=== PATIENT | male | born 1990 | race Caucasian/White ===

== ENCOUNTER → 2023-05-24 12:30 | Outpatient (CLI) | payer BC, SELFPAY ==
--- NOTE | 2023-05-24 12:38 | XR_ITS ---
FINAL REPORT CLINICAL HISTORY: Foot pain COMPARISON: None FINDINGS: LEFT FOOT Three views of the left foot demonstrate no acute fracture or dislocation. The visualized joint spaces are normally aligned. The soft tissues are unremarkable. Note is made of an accessory navicular. IMPRESSION: No acute bony abnormality. Reviewed, Interpreted and Dictated by Kota Lambert MD Transcribed by Corine Delgadillo Authenticated and [facility]
--- NOTE | 2023-05-24 12:38 | XR_ITS ---
FINAL REPORT CLINICAL HISTORY: Foot pain COMPARISON: None FINDINGS: RIGHT FOOT 3 views of the right foot were obtained. There is no acute fracture or dislocation. Visualized joint spaces are normally aligned. Soft tissues are unremarkable. A small os perineum is incidentally noted. IMPRESSION: No acute bony abnormality. Reviewed, Interpreted and Dictated by Kota Lambert MD Transcribed by Corine Delgadillo Authenticated and [facility]
== END ==
LOC: RAD 12:35
PROVIDERS: PCP Family Medicine; Visit Provider Podiatrist
DX: M79.671 Pain in right foot (principal); M79.672 Pain in left foot
CPT/HCPCS: 73630

== ENCOUNTER 2024-03-27 11:36 | Day surgery (SDC) | payer BC, SELFPAY ==
[2024-03-25 15:32] VITALS: BMI 31.4
[2024-03-27 12:01] VITALS: BP 136/86; PULSE 83; RESP 16; TEMP 36.7; O2SAT 97
[2024-03-27] MEDS: LACTATED RINGERS 1000ML 1,000 ML 25 ML IV (12:17)
[2024-03-27 12:33] LABS: POC Glucose,Bedside 369 (70-110)
--- NOTE | 2024-03-27 12:49 | EXP.ANES.CKL ---
[facility] Disclaimer: The information contained in this section may have been updated after the patient was seen, as this information can be updated by other users. Medical History Diabetes mellitus type 1 Surgical History History of esophagogastroduodenoscopy (EGD) Family History Other No significant family history Social History (Updated 03/27/24 @ 12:16 by Marisol Fairbanks RN) Smoking Status: Current every day smoker tobacco type: e-cigarettes alcohol intake: current substance use type: denies use current occupational status: employed Travel in the last 8 weeks: None caffeine: Yes [facility] Anesthesia Checklist Patient Identification Patient Identification: Arm Band Structural Data Admitted From: Home Planned Operative Procedure/s: EGD Consent for Planned Operative Procedure(s) Verified: Yes Verified Documents: Surgical Consent and History and Physical NPO Status Verified Time NPO: 05:00 ([employer]uts at 0500. Energy Drink + Sprite at 0945. ) Additional verifications Anesthesia Reactions: No Airway Assessment Mallampati Score:: Class II C-Spine Mobility Assessed: Yes TMJ Mobility Assessed: Yes Dentition: Good Dentition Neurological Assessment Level of Consciousness: Awake, Alert and Appropriate Anesthesia Plan Anesthesia Risk discussed: Yes Anesthesia Plan: Verified ASA Class: III Anesthesia Type: MAC
--- NOTE | 2024-03-27 13:06 | EXP.HP ---
History of Present Illness *Admission Date: 03/27/24 *Reason for visit:: Dyspepsia *History of present illness: Mr. Grant is a 33-year-old gentleman who is here for left upper quadrant abdominal pain, bloating, reflux and dysphagia. He has nausea and early satiety.. The examination is deemed medically necessary for EGD. The patient has been seen, interviewed and examined prior to the procedure by both myself and the anesthesia provider. [facility] Disclaimer: The information contained in this section may have been updated after the patient was seen, as this information can be updated by other users. Medical History Diabetes mellitus type 1 Surgical History History of esophagogastroduodenoscopy (EGD) Family History Other No significant family history Social History (Updated 03/27/24 @ 12:16 by Marisol Fairbanks RN) Smoking Status: Current every day smoker tobacco type: e-cigarettes alcohol intake: current substance use type: denies use current occupational status: employed Travel in the last 8 weeks: None caffeine: Yes Review of Systems Review of Systems Review of systems (narrative): Negative *Cardiovascular Comments: Negative *Gastrointestinal Comments: Negative *Genitourinary Comments: Negative *Musculoskeletal Comments: Negative *Neurologic Comments: Negative Meds Home Medications and Allergies Home Medications ?Medication ?Instructions ?Recorded ?Confirmed ?Type insulin lispro 100 unit/mL 4 sliding scale dose SQ 05/24/23 03/27/24 History subcutaneous cartridge (Humalog USEASDIRECTD U-100 Insulin) trazodone 100 mg tablet 100 mg PO DAILY 05/24/23 03/27/24 History semaglutide 0.25 mg or 0.5 mg (2 0.25 mg SQ DAILY 03/03/24 03/27/24 History mg/3 mL) subcutaneous pen injector (Ozempic) New Prescriptions to Start Prescriptions: Allergies Allergy/AdvReac Type Severity Reaction Status Date / Time watermelon Allergy Unknown Verified 03/27/24 11:59 allergy reaction Exam Data for Last 24 hours Vital signs and Labs for Last 24 Hours: Temp Pulse Resp BP Pulse Ox O2 Del Method 98.1 F 83 16 136/86 97 Room Air 03/27/24 12:01 03/27/24 12:01 03/27/24 12:01 03/27/24 12:01 03/27/24 12:01 03/27/24 12:01 Laboratory Results - last 24 hr 03/27/24 12:12: POC Glucose 369 H* I & O for Last 24 hours: Intake & Output 03/24/24 03/25/24 03/26/24 03/27/24 23:59 23:59 23:59 23:59 Weight 245 lb *Routine HEENT Exam Head: Present normocephalic Eye: Present EOMI and PERRL ENT: Present mucous membranes moist *Routine Neck Exam Neck: Present supple *Routine Respiratory Exam Respiratory: Present CTA bilaterally *Routine Cardiovascular Exam Cardiovascular: Present RRR *Routine Abdominal Exam Abdominal: Present soft and normoactive bowel sounds; Absent tenderness *Routine Rectal Exam Rectal:: deferred *Routine Genitalia Exam Genitalia:: deferred *Routine Extremities Exam Extremities: Absent cyanosis, clubbing or edema *Routine Skin Exam Skin: Present warm; Absent rash *Routine Neurological Exam Neurological: Present alert and oriented X3 Assessment and Plan *Assessment and plan (1) LUQ pain: Status: Acute Category: Medical Code(s): R10.12 - Left upper quadrant pain (2) Bloating: Status: Acute Category: Medical Code(s): R14.0 - Abdominal distension (gaseous) (3) Dysphagia: Status: Acute Category: Medical Code(s): R13.10 - Dysphagia, unspecified (4) Globus sensation: Status: Acute Category: Medical Code(s): R09.A2 - Foreign body sensation, throat (5) Incomplete defecation: Status: Acute Category: Medical Code(s): R15.0 - Incomplete defecation Plan A/P: 1. Left upper quadrant abdominal pain/bloating and dysphagia is the preprocedural diagnosis. The patient will be anesthetized/sedated using MAC sedation. The patient has been seen and examined. Cardiac and lung assessment prior to the examination is stable. Proceed with planned upper endoscopy
[2024-03-27 13:10] VITALS: O2SAT 97
--- NOTE | 2024-03-27 13:20 | P.PCN_ITS ---
[facility] Procedure Note Date: 03/27/24 Time: 13:35 Procedure Note:: Upper Endoscopy Procedure Report: Esophagogastroduodenoscopy with cold biopsies and TTS balloon dilation Endoscopost: Sarwat Higginbotham II, MD Referring Physician: David Feldman MD Date of Procedure: March 27, 2024 Equipment: Olympus GIF 190 standard upper endoscope Sedation: MAC sedation Indications: Mr. Gillis is a 33-year-old gentleman with left upper quadrant abdominal pain and bloating. He reports persistent nausea and early satiety. He does get some reflux and takes Pepcid and Tums therapy intermittently. He does get some belching, dysphagia and globus sensation. He reports incomplete defecation with smaller stools, longer periods of time on the commode and excessive wiping. He had an EGD [address] Moshe Díaz in [place]. He underwent a gastric emptying study that was normal at [facility]. Procedure: Prior to the procedure, a history and physical exam was performed, and patient's medications and allergies were reviewed. The risks, benefits and alternatives of the sedation and procedure were discussed with the patient. All questions were answered and informed consent was obtained. The patient was brought to the procedure room. Patient identification and proposed procedure were verified by the physician and the nurse. The patient was placed in a left lateral decubitus position and the scope was passed under direct vision. Throughout the procedure, the patient's blood pressure, pulse, and oxygen saturations were monitored continuously. The upper GI endoscopy was accomplished without difficulty. The patient tolerated the procedure well. Findings: The scope was passed directly into the upper esophagus and advanced to the third portion of the duodenum. The post bulbar duodenum and duodenal bulb were normal with normal mucosa and conniventes. The scope was withdrawn through a normal duodenal bulb and pylorus into the stomach. There was some mild reactive gastropathy of the antrum. There was very mild gastritis of the body and fundus with mild reticular pattern and erythema. Upon retroflexion there was a small 1 to 2 cm hiatal hernia. Cold biopsies were taken along the lesser curvature and incisura. Biopsies were taken to rule out H. pylori. The scope was then withdrawn into the esophagus. There was a distal esophageal ring and there was some corrugation and ringlike pattern with esophageal mucosal exudate and minor furrowing. Cold biopsies were taken from the distal and to rule out eosinophilic esophagitis. The esophagus was then gently dilated to 18 mm with a TTS hydrostatic balloon. There was no evidence of reflux esophagitis or Sena's. Impression: 1. Esophageal corrugation/ringlike pattern with some esophageal stenosis/exudate and curling?rule out eosinophilic esophagitis 2. Very small 1 to 2 cm hiatal hernia 3. Mild chronic gastritis and mild reactive gastropathy Plan: I will follow-up the biopsies. We will discuss additional treatment options today. I would recommend dietary measures and fiber bowel regimen. I will place him on PPI therapy and Iberogast. He may benefit from buspirone for his functional dyspepsia.
[2024-03-27 13:39] VITALS: BP 123/74; PULSE 111; RESP 16; O2SAT 91
[2024-03-27 13:49] VITALS: BP 127/82; PULSE 102; RESP 18; O2SAT 96
[2024-03-27 13:59] VITALS: BP 132/74; PULSE 96; RESP 16; O2SAT 95
[2024-03-27 14:09] VITALS: BP 135/88; PULSE 92; RESP 16; O2SAT 96
== END 2024-03-27 14:17 | disposition home or self-care (01) ==
PROVIDERS: PCP Family Medicine; Visit Provider Internal Medicine Gastroenterology
PROC: 0DJ08ZZ Inspection of Upper Intestinal Tract, Via Natural or Artificial Opening Endoscopic (ICD-10-PCS; CPT 43235; principal; 2024-03-27 13:00)
DX: R10.12 Left upper quadrant pain (principal); R14.0 Abdominal distension (gaseous); R13.10 Dysphagia, unspecified; R09.A2 Foreign body sensation, throat; R15.0 Incomplete defecation; K20.0 Eosinophilic esophagitis; K21.9 Gastro-esophageal reflux disease without esophagitis; R11.0 Nausea; R68.81 Early satiety; K44.9 Diaphragmatic hernia without obstruction or gangrene
CPT/HCPCS: 43239; 43249; 82962; C1726; J2704; J7120

== ENCOUNTER 2024-04-27 20:57 | Emergency (ER) | payer BC, SELFPAY ==
[2024-04-27 20:59] VITALS: BP 135/91; PULSE 125; RESP 18; TEMP 37.3; O2SAT 97; BMI 32.1
[2024-04-27 22:26] LABS: Coronavirus 19, PCR Not Detected (NotDetected); Influenza A, PCR Not Detected (NotDetected); Influenza B, PCR Not Detected (NotDetected)
--- NOTE | 2024-04-27 23:01 | ED_ITS ---
Discharge Plan Disposition Patient Disposition: Left Against Medical Advice Prescriptions Prescriptions: New ondansetron HCl 4 mg tablet 4 mg PO Q8H PRN (Reason: nausea and vomiting) 5 Days Qty: 30 0RF levofloxacin 750 mg tablet 750 mg PO DAILY 5 Days Qty: 5 0RF vancomycin 250 mg capsule 500 mg PO Q6H 10 Days Qty: 80 0RF No Action prednisone 20 mg tablet 20 mg PO DAILY 7 Days Qty: 7 0RF Humalog U-100 Insulin 100 unit/mL cartridge 4 sliding scale dose SQ USEASDIRECTD Patient Comments: Takes 300 units every 3 days trazodone 100 mg tablet 100 mg PO DAILY omeprazole 40 mg capsule,delayed release(DR/EC) 40 mg PO ONCE Qty: 30 12RF Rx Instructions: Please take 1 capsule p.o. daily 30 minutes prior to supper Referrals Follow up/Referrals: David Feldman [Primary Care Provider] - See instructions Activity Restrictions/Add. Instructions Additional Instructions/Restrictions: Take antibiotics as prescribed. Please take Zofran as needed for nausea and vomiting. Please try to remain hydrated. please follow-up with your primary care provider. Please return to the emergency department if you develop any new or worsening symptoms or become concerned for your health. Clinical Impressions Clinical Impression: Dehydration, Tachycardia, C. difficile colitis Instructions Patient Instructions: DI for Diarrhea and Traveler's Diarrhea -- Adult, DI for Diarrhea and Traveler's Diarrhea -- Child, DI for Nausea -- Adult, DI for Nausea -- Child Print Language Print Language: Guamanian Discharge ED Provider: Luis Carlos Lew General Adult HPI General Chief complaint: Nausea/Vomiting/Diarrhea Stated complaint: vomiting,fever,abdominal pain ,headache , body ach Time Seen by Provider: 04/27/24 23:00 Mode of Arrival: Ambulatory Source of Information: Patient Limitations: No Limitations Description of Symptoms (Recalled from ER Triage Doc. by RN): Patient to ED with complaints of fever x24 hrs, n/v/d, headache. Patient states that he also has body aches, and generalized weakness. History of Present Illness HPI narrative: 33-year-old male with history of type 1 diabetes, eosinophilic esophagitis presents for multiple complaints. He reports that over the last few days he has had significant frequent nonbloody nausea vomiting and diarrhea. He reports that he feels like he is unable to keep up with fluid requirements. He reports that he has generalized bodyaches. He reports that he has a chronic headache that he has not been evaluated for before. It happens almost every day. Is usually frontal in nature. He reports he has a headache now that is more diffuse in nature. It did not improve with Tylenol at home. He reports he does have some neck and back soreness as well, but reports he is able to look around without pain. He denies any vision changes associated with this headache. Denies any focal neurologic deficits, but family says that he has been somewhat out of it since he has been sick. He reports fever up to 102 at home. he also reports some cough. He reports he was on amoxicillin for presumed sinus infection recently. Related Data Home Medications ?Medication ?Instructions ?Recorded ?Confirmed insulin lispro 100 unit/mL 4 sliding scale dose SQ 05/24/23 04/03/24 subcutaneous cartridge (Humalog USEASDIRECTD U-100 Insulin) trazodone 100 mg tablet 100 mg PO DAILY 05/24/23 04/03/24 Previous Rx's ?Medication ?Instructions ?Recorded omeprazole 40 mg capsule,delayed 40 mg PO ONCE #30 caps 03/27/24 release prednisone 20 mg tablet 20 mg PO DAILY 7 days #7 tabs 04/03/24 levofloxacin 750 mg tablet 750 mg PO DAILY 5 days #5 tabs 04/28/24 ondansetron HCl 4 mg tablet 4 mg PO Q8H PRN nausea and 04/28/24 vomiting 5 days #30 tabs vancomycin 250 mg capsule 500 mg (2 x 250 mg) PO Q6H 10 days 04/28/24 #80 caps Allergies Allergy/AdvReac Type Severity Reaction Status Date / Time watermelon Allergy Unknown Verified 04/03/24 15:16 allergy reaction [facility] Disclaimer: The information contained in this section may have been updated after the patient was seen, as this information can be updated by other users. Medical History Diabetes mellitus type 1 Surgical History History of esophagogastroduodenoscopy (EGD) Family History Other No significant family history Social History Smoking Status: Current every day smoker tobacco type: e-cigarettes alcohol intake: current substance use type: denies use current occupational status: employed caffeine: Yes ROS Obtained: Yes All systems reviewed & no additional complaints except as documented Physical Exam General General appearance: alert and in no apparent distress Head Head exam: atraumatic and normocephalic Eye Eye exam: Present normal appearance, PERRL and EOMI; Absent scleral icterus or conjunctival redness ENT ENT exam: Present normal oropharynx and normal external ear exam Neck Neck exam: Present normal inspection, full ROM (Without pain) and tenderness (Mild paraspinal tenderness); Absent meningismus Chest Chest inspection: Present normal inspection and symmetric chest wall rise; Absent tenderness Respiratory Respiratory exam: Present normal lung sounds bilaterally; Absent respiratory distress Cardiovascular Cardiovascular exam: Present normal rhythm and tachycardia Abdominal Exam Abdominal exam: Present soft and tenderness (Mildly diffusely tender, worse in epigastric); Absent distention or guarding Extremities Exam Extremities exam: Present normal inspection; Absent edema or joint swelling Back Exam Back exam: Present normal inspection; Absent tenderness Neurological Exam Neurological exam: Present alert, oriented X3 and CN II-XII intact; Absent motor sensory deficit Psychiatric Psychiatric exam: Present normal affect and normal mood Skin Skin exam: Present warm, dry and normal color Lymphatic Lymphatic Findings: no adenopathy Medical Decision Making Medical Records Medical records reviewed: Yes I reviewed the patient's medical records. Screening: Per USPSTF and CDC recommendations, given the prevalence of disease in our region, it is our hospital?s policy to screen for HIV and viral Hepatitis for all patients aged 18 and over and those with ongoing risk factors. Abdiel Inquiry Pt receiving controlled substance: No Abdiel was queried for this patient: No Vital Signs: 04/27/24 20:59 04/28/24 02:49 Temperature 99.2 F 98.2 F Temperature Source Oral Pulse Rate 125 H Pulse Rate [Left] 125 H Respiratory Rate 18 23 Blood Pressure 145/69 H Blood Pressure [Right Arm] 135/91 H Blood Pressure Mean [Right Arm] 105 Blood Pressure Source [Right Arm] Automatic Cuff Blood Pressure Position [Right Arm] Sitting 02 Sat by Pulse Oximetry 97 Oxygen Delivery Method Room Air Room Air Lab Data Lab results reviewed: Yes I reviewed the patient's lab results. Lab Results 04/27/24 00:00: Chlamy pneumoniae PCR Not detected, Adenovirus (PCR) Not detected, B. pertussis DNA (PCR) Not detected, Coronavirus OC43 (PCR) Not detected, Coronavirus HKU1 (PCR) Not detected, Coronavirus 229E (PCR) Not detected, SARS-CoV-2 (PCR) Not detected, Coronavirus NL63 (PCR) Not detected, Human Metapneumovir PCR Not detected, Influenza A (H1) PCR Not detected, Influ A (H1N1/09) PCR Not detected, Influenza A (H3) PCR Not detected, Influenza Type A (PCR) Not detected, Influenza Type B (PCR) Not detected, M. pneumoniae (PCR) Not detected, Parainfluenza 1 (PCR) Not detected, Parainfluenza 2 (PCR) Not detected, Parainfluenza 3 (PCR) Not detected, Parainfluenza 4 (PCR) Not detected, RSV (PCR) Not detected, Entero/Rhino (PCR) Not detected 04/27/24 22:18: SARS-CoV-2 (PCR) Not detected, Influenza A Untype (PCR) Not detected, Influenza Type B (PCR) Not detected 04/27/24 22:25: WBC 16.2 H, RBC 5.37, Hgb 16.0, Hct 45.8, MCV 85.2, MCH 29.7, MCHC 34.9, RDW 13.6, Plt Count 292, MPV 7.5, Neut % (Auto) 93.7 H, Lymph % (Auto) 3.1 L, [place] % (Auto) 2.8, Eos % (Auto) 0.1, Baso % (Auto) 0.4, Neut # (Auto) 15.2 H, Lymph # (Auto) 0.5 L, [place] # (Auto) 0.5, Eos # (Auto) 0.0, Baso # (Auto) 0.1, Total Counted 100, Neutrophils % (Manual) 84 H, Band Neutrophils % 9.0 H, Lymphocytes % (Manual) 4 L, Monocytes % (Manual) 3, Platelet Estimate Normal, RBC Morphology Normal, Sodium 133 L, Potassium 3.7, Chloride 99, Carbon Dioxide 25, Anion Gap 12.7, BUN 16, Creatinine 1.20, Estimated Creat Clear 142, Estimated GFR 70, Est GFR ( Amer) 85, Glucose 268 H, Calcium 8.5, M agnesium 1.4 L, Total Bilirubin 0.8, AST 33, ALT 43, Alkaline Phosphatase 89, Total Protein 6.9, Albumin 4.1, Globulin 2.8, Albumin/Globulin Ratio 1.5, Lipase 24, TSH 0.89, Thyroxine (T4) 7.6 04/28/24 00:30: VBG pH 7.46 H, VBG pCO2 28.2 L, VBG pO2 115.8 H, VBG HCO3 19.5 L , VBG Total CO2 20.4 L, VBG O2 Saturation 98.9 H, VBG Base Excess -4.3 L, VBG Lactic Acid 1.9, Urine Color Yellow, Urine Appearance Clear, Urine pH 5.5, Ur Specific [place] 1.020, Urine Protein Negative, Urine Glucose (UA) 2+, Urine Ketones Negative, Urine Blood Negative, Urine Nitrate Negative, Urine Bilirubin Negative, Urine Urobilinogen 0.2, Ur Leukocyte Esterase Negative, Urine RBC None, Urine WBC None, Ur Squamous Epith Cells Occasional, Urine Bacteria None 04/28/24 01:34: Stl Aeromonas (PCR) Not detected, Stl C. cayetanensis PCR Not detected, Stool Rotavirus (PCR) Not detected, Stl Adenov F 40/41 PCR Not detected, Stool Astrovirus (PCR) Not detected, Stool Campylobacter PCR Not detected, Stl C.difficile Tox PCR Detected A, Stool Cryptosporidium PCR Not detected, Stl E.coli Shiga Tox PCR Not detected, Stool E coli O157 PCR Not detected, Stl Enterotoxigenic E PCR Not detected, Stool EPEC (PCR) Not detected, Stool EAEC (PCR) Not detected, Stl E. histolytica PCR Not detected, Stool Giardia Lamblia PCR Not detected, Stool Salmonella PCR Not detected, Stool Sapovirus (PCR) Not detected, Stl P. shigelloides PCR Not detected, Stl Shigella/EIEC PCR Not detected, St Y.enterocolitica PCR Not detected, Stool Vibrio (PCR) Not detected, Stl Vibrio cholerae PCR Not detected, Stl Norovirus GI/GII PCR Not detected 04/27/24 22:25 04/27/24 22:25 Orders (Tests/Meds): ED MEDICATIONS Discontinued Medications Generic Name Dose Route Start Last Admin Trade Name Freq PRN Reason Stop Dose Admin Lactated Ringer's 1,000 mls @ 999 mls/hr 04/27/24 23:15 04/27/24 23:21 Lactated Ringer's 1000 Ml Bag IV 04/28/24 00:15 999 mls/hr .Q1H1M VERONIQUE Administration Magnesium Sulfate 2 gm in 50 mls @ 50 mls/hr 04/27/24 23:11 04/27/24 23:20 Magnesium Sulfate 2gm/50ml Premix IV 04/28/24 00:10 50 mls/hr ONCE ONE Administration Lactated Ringer's 1,000 mls @ 999 mls/hr 04/28/24 01:00 04/28/24 01:16 Lactated Ringer's 1000 Ml Bag IV 04/28/24 02:00 Not Given .Q1H1M VERONIQUE Sodium Chloride 1,000 mls @ 999 mls/hr 04/28/24 00:57 04/28/24 01:15 Sod Chlor 0.9% 1000ml Bag IV 04/28/24 01:57 999 mls/hr .Q1H1M ONE Administration Iopamidol 75 ml 04/28/24 00:03 04/28/24 00:04 Iopamidol-370 (76%);100ml Bottle IV 04/28/24 00:04 75 ml ONCE ONE Administration Ketorolac Tromethamine 30 mg 04/27/24 23:11 04/27/24 23:20 Ketorolac 30mg/Ml Vial IV 04/27/24 23:12 30 mg ONCE ONE Administration Levofloxacin 750 mg 04/28/24 02:43 04/28/24 02:45 Levofloxacin 750 Mg Tablet PO 04/28/24 02:44 750 mg ONCE ONE Administration Prochlorperazine Edisylate 10 mg 04/27/24 23:11 04/27/24 23:20 Prochlorperazine 10mg/2ml Vial IV 04/27/24 23:12 10 mg ONCE ONE Administration Sodium Chloride 10 ml 04/27/24 23:11 04/28/24 00:04 Sodium Chloride 0.9% 10ml Flush Syringe IV 05/27/24 23:10 10 ml NEEDED PRN Administration Maintain IV Site Sodium Chloride 50 ml 04/28/24 00:03 04/28/24 00:03 0.9 % Sodium Chloride 50 Ml Vial IV 04/28/24 00:04 50 ml ONCE ONE Administration Sodium Chloride 10 ml 04/28/24 00:03 Sodium Chloride 0.9% 10ml Syr (Rad Only) IV 05/28/24 00:02 NEEDED PRN Maintain IV Site ORDERS Category Date Time Status CT abdomen pelvis w con Stat Cat Scan 04/27/24 23:[address] head/brain wo con Stat Cat Scan 04/27/24 23:11 Completed CXR --portable [XR chest portable] Stat Exams 04/27/24 23:12 Completed CBC w/Auto Diff [Complete Blood Count Auto Diff] Stat Lab 04/27/24 22:25 Completed CMP [Comprehensive Metabolic Panel] Stat Lab 04/27/24 22:25 Completed Diarrhea 23 Panel, PCR Routine Lab 04/28/24 01:34 Completed Full Resp Panel w/COVID ([facility]) Routine Lab 04/27/24 22:18 Completed Lipase Stat Lab 04/27/24 22:25 Completed Magnesium Stat Lab 04/27/24 22:25 Completed Rapid PCR Covid and Flu A/B Stat Lab 04/27/24 22:18 Completed T4 (Thyroxine) Stat Lab 04/27/24 22:25 Completed TSH [Thyroid Stimulating Hormone] Stat Lab 04/27/24 22:25 Completed UA [Urinalysis and Microscopic] Stat Lab 04/28/24 00:30 Completed Blood Culture Stat Micro 04/27/24 23:14 Ordered VBG [Venous Blood Gas] Stat RT 04/28/24 00:30 Completed ECG Data Tracing #1: I reviewed this ECG and interpreted as documented below: Sinus rhythm, tachycardia with rate of 120, no significant ST or T wave changes, no evidence of arrhythmia ECG initial impression date: 04/28/24 ECG initial impression time: 23:35 Tissue Perfus/Sepsis Re-Eval Sepsis Re-Evaluation Performed: Yes Date Performed: 04/28/24 Time Performed: 01:49 Medical Decision Narrative: 33-year-old male with history of type 1 diabetes with insulin pump, eosinophilic esophagitis presents for couple of days of fever chills muscle aches headache and significant nonbloody watery vomiting and diarrhea. History was obtained via interactive discussion with patient, family, chart review. On arrival, patient is afebrile, normotensive, tachycardic between 120 and 140 with sinus rhythm, moving all extremities spontaneously. Full physical exam performed and significant for mild generalized abdominal tenderness, negative Kernig and Brudzinski sign, normal neurologic exam. Differential includes but is not limited to viral/bacterial gastroenteritis, colitis, dehydration, DKA, bacteremia, intracranial mass lesion, viral/bacterial meningitis. Given patient's primarily GI symptoms and normal neurologic exam with negative Kernig and Brudzinski signs, I have no significant concern for meningitis at this time despite headache and some neck soreness. Patient was given 2 L IV fluid bolus, Compazine, Toradol, 2 g IV magnesium for symptomatic management and correction of underlying abnormalities. Workup initiated including CBC CMP VBG blood culture mag TSH T4 lipase EKG nasopharyngeal panel, GI panel, chest x-ray CT head CT abdomen and pelvis. On re-evaluation, patient remains tachycardic to the 120s despite 2 L IV fluid resuscitation. No hypotension. Headache resolved. Laboratory workup independently interpreted by me and significant for leukocytosis white count of 16, gas with respiratory alkalosis, normal lactate, mild hypomagnesemia repleted. Urinalysis without evidence of infection Imaging independently interpreted by me and significant for no acute intracranial lesions, CT shows colitis. See radiology read for full review of final results. On reassessment patient remains tachycardic but he reports he feels much better overall. He reports he would like to be discharged at this time. I spent extensive time talking with the patient about my concerns. He is persistently tachycardic, has a leukocytosis, has colitis on CT. given these findings, I think he would be better served by admission and observation and antibiotic administration. Patient reports that he understands the risks of leaving AMA but would like to do so anyway prior to the stool sample results. I gave the patient Levaquin for empiric therapy for infectious colitis. After patient was discharged his C. difficile result returned positive. I called and again encouraged him to return but he again declined. I instructed him to discontinue the Levaquin and begin taking a prescription for p.o. vancomycin which I sent to his pharmacy. He was encouraged to return if his symptoms worsen or do not improve. Procedures Risk/Benefits of Procedure(s) Were Explained: Yes Critical Care Critical Care Time Critical Care Time: No
--- NOTE | 2024-04-27 23:11 | CT_ITS ---
PROCEDURE INFORMATION: Exam: CT Head Without Contrast Exam date and time: 04/27/2024 11:43 PM Age: 33 years old Clinical indication: Pain; Headache; Additional info: Daily headaches TECHNIQUE: Imaging protocol: Computed tomography of the head without contrast. Radiation optimization: All CT scans at this facility use at least one of these dose optimization techniques: automated exposure control; mA and/or kV adjustment per patient size (includes targeted exams where dose is matched to clinical indication); or iterative reconstruction. COMPARISON: No relevant prior studies available. FINDINGS: Brain: There is no acute intracranial hemorrhage or abnormal extra-axial fluid collection identified. There is no intracranial mass effect or shift of midline structures. The gamez-white differentiation is preserved throughout. There is no sulcal effacement. The basilar cisterns are open. Cerebral ventricles: No hydrocephalus or ventricular effacement. Paranasal sinuses: Sinus mucosal disease is noted. There is complete opacification left maxillary antrum. No air-fluid levels are identified. Mastoid air cells: There is no mastoid effusion detected. Bones: No calvarial fracture or destructive osseous lesions are seen. Soft tissues: Unremarkable. IMPRESSION: No acute intracranial pathology identified by CT.
--- NOTE | 2024-04-27 23:11 | CT_ITS ---
PROCEDURE INFORMATION: Exam: CT Abdomen And Pelvis Without And With Contrast Exam date and time: 04/27/2024 11:53 PM Age: 33 years old Clinical indication: Nausea and vomiting; Abdominal pain; Additional info: Epigastric pain, n/v/d TECHNIQUE: Imaging protocol: Computed tomography of the abdomen and pelvis without and with contrast. Total images: 663 Radiation optimization: All CT scans at this facility use at least one of these dose optimization techniques: automated exposure control; mA and/or kV adjustment per patient size (includes targeted exams where dose is matched to clinical indication); or iterative reconstruction. Contrast material: ISOVUE; Contrast volume: 75 ml; Contrast route: IV; COMPARISON: CR XR CHEST PORTABLE 04/27/2024 11:52 PM FINDINGS: Lungs: Very minor bibasilar dependent atelectasis. Heart: Normal heart size. Diaphragm: Small hiatal hernia. Liver: Mild hepatomegaly at 19.2 cm. Otherwise, unremarkable liver. Gallbladder and biliary ducts: Normal. No calcified stones. No ductal dilation. Pancreas: Normal. No ductal dilation. Spleen: Normal. No splenomegaly. Adrenal glands: Normal. No mass. Kidneys and ureters: 3.5 cm right renal cyst. Additional subcentimeter bilateral renal cortical hypodensities are too small to characterize but statistically cysts requiring no strict follow-up. No hydronephrosis or nephrolithiasis. Stomach and bowel: Unremarkable stomach and duodenum. No ileus or bowel obstruction. Unremarkable small bowel. Mild wall thickening of the colon. Unremarkable rectum. Appendix: Normal appendix. Intraperitoneal space: Unremarkable. No free air. No significant fluid collection. Vasculature: The abdominal aorta is normal in caliber. Major abdominal vessels enhance appropriately. Lymph nodes: Scattered prominent but not pathologically enlarged mesenteric lymph nodes. No enlarged lymph nodes. Urinary bladder: Unremarkable as visualized. Reproductive: Unremarkable as visualized. Bones/joints: Unremarkable. No acute fracture. Soft tissues: Unremarkable. IMPRESSION: 1. Mild colonic wall thickening in keeping with acute infectious or inflammatory pancolitis. No complicating features. 2. Additional chronic and incidental findings. COMMENTS: Consistent with the [employer]'s Incidental Findings Committee white paper (J Am Silvia Radiol 2018): Any incidental renal lesion less than 1 cm or classified as too small to characterize, or any incidental cystic renal lesion characterized as simple-appearing, is likely benign. No follow-up imaging is recommended for these lesions per consensus recommendations based on imaging criteria.
--- NOTE | 2024-04-27 23:11 | ECG_ITS ---
APPROVED REPORT Exam: Resting ECG HR:120 bpm ECG Measurements Heart Rate 120 AXES NV 139 P 52 QRSd 92 QRS 78 QT 289 T -10 QTc 360 Conclusion SINUS TACHYCARDIA NONSPECIFIC T-WAVE ABNORMALITY ABNORMAL ECG UNCONFIRMED REPORT Electronically signed by : WOODY YORK, 05/01/2024 06:29:49
--- NOTE | 2024-04-27 23:12 | XR_ITS ---
PROCEDURE INFORMATION: Exam: XR Chest Exam date and time: 04/27/2024 11:52 PM Age: 33 years old Clinical indication: Cough and fever; Additional info: Cough fever TECHNIQUE: Imaging protocol: Radiologic exam of the chest. Views: 1 view. Total images: 1 COMPARISON: No relevant prior studies available. FINDINGS: Lungs: Unremarkable. No consolidation. No pulmonary vascular congestion or edema. Pleural spaces: Unremarkable. No pleural effusion. No pneumothorax. Heart/Mediastinum: Unremarkable. No cardiomegaly. No mediastinal widening or hilar enlargement. Bones/joints: Unremarkable. IMPRESSION: No radiographically acute cardiopulmonary process.
[2024-04-27] MEDS: KETOROLAC 30MG/ML VIAL 30 MG IV (23:20)
[2024-04-27] MEDS: PROCHLORPERAZINE 10MG/2ML VIAL 10 MG IV (23:20)
[2024-04-27] MEDS: MAGNESIUM SULFATE IN WATER 2 GM/50 ML PIGGYBACK IV (23:20)
[2024-04-27] MEDS: LACTATED RINGERS 1000ML 1,000 ML 999 ML IV (23:21)
[2024-04-27 23:22] LABS: Basophils # 0.1 K/mm3 (0-0.2); Basophils % 0.4 % (0.1-2.0); Eosinophils % 0.1 % (0.1-12.0); Hematocrit 45.8 % (42.0-52.0); Lymphocytes # 0.5 K/mm3 (0.7-4.5); Lymphocytes % 3.1 % (10-50); Mean Corpuscular HGB Conc 34.9 g/dL (31.8-35.4); Mean Corpuscular Hemoglobin 29.7 pg (27.0-31.2); Mean Corpuscular Volume 85.2 fl (80-94); Mean Platelet Volume 7.5 fl (7.4-10.4); Monocytes # 0.5 K/mm3 (0.1-1.0); Monocytes % 2.8 % (1.7-9.3); Neutrophils # 15.2 K/mm3 (1.8-7.8); Neutrophils % 93.7 % (37.0-80.0); Platelet Count 292 K/mm3 (142-424); Red Blood Count 5.37 M/mm3 (4.60-6.20); Red Cell Distribution Width 13.6 % (11.5-17.5); White Blood Count 16.2 K/mm3 (4.8-10.8)
[2024-04-27 23:24] LABS: MANUAL DIFFERENTIAL MANUAL DIFFERENTIAL (MANUAL DIFF)
[2024-04-27 23:37] LABS: Albumin Level 4.1 g/dl (3.5-5.0); Chloride 99 mmol/L (98-107); Potassium 3.7 mmoL/L (3.5-5.1); Sodium 133 mmol/L (136-145)
[2024-04-27 23:39] LABS: Alanine Aminotransferase 43 U/L (12-78); Anion Gap 12.7 mEq/L (5-15); Aspartate Amino Transferase 33 U/L (17-59); Blood Urea Nitrogen 16 mg/dl (9-20); Carbon Dioxide 25 mmol/L (22.0-30.0); Creatinine Clearance Estimated 142 mL/min (50-200); Estimated Glomerular Filt Rate 70 ml/min (>60); GFR (African American) 85 ML/MIN (>60)
--- NOTE | 2024-04-27 23:39 | PC.NURSE ---
EKG 12-lead taken at this time.
[2024-04-27 23:40] LABS: Albumin/Globulin Ratio 1.5 (1.1-1.8); Alkaline Phosphatase 89 U/L (38-126); Bilirubin,Total 0.8 mg/dl (0.2-1.3); Calcium 8.5 mg/dl (8.4-10.2); Globulin 2.8 g/dL (1.3-3.2); Glucose 268 mg/dl (74-100); Lipase 24 U/L (23-300); Lymphocytes % 4 % (10-50); Magnesium 1.4 mg/dl (1.6-2.3); Monocytes % 3 % (2-9); Neutrophils % 84 % (42-76); Platelet Estimate Normal; RBC Morphology Normal; Total Cells Counted 100; Total Protein,Serum 6.9 g/dl (6.3-8.2)
[2024-04-27 23:57] LABS: T4 (Thyroxine) 7.6 ug/dl (5.53-11.0)
[2024-04-28] MEDS: 0.9 % SODIUM CHLORIDE 50 ML VIAL IV (00:03)
[2024-04-28] MEDS: SODIUM CHLORIDE 0.9% 10ML FLUSH SYRINGE 10 ML IV (00:04)
[2024-04-28] MEDS: IOPAMIDOL-370 (76%);100ML BOTTLE 75 ML IV (00:04)
[2024-04-28 00:11] LABS: Thyroid Stimulating Hormone 0.89 uIU/mL (0.465-4.68)
[2024-04-28 00:14] LABS: Adenovirus,PCR Not Detected (NotDetected); Bordetella Pertussis Not Detected (NotDetected); Chlamydophila Pneumoniae, PCR Not Detected (NotDetected); Coronavirus 19, PCR Not Detected (NotDetected); Coronavirus 229E Not Detected (NotDetected); Coronavirus NL63 Not Detected (NotDetected); Coronavirus OC43 Not Detected (NotDetected); Coronovirus HKU1,PCR Not Detected (NotDetected); Human Metapneumovirus Not Detected (NotDetected); Influenza A, PCR Not Detected (NotDetected); Influenza AH1, 2009 Not Detected (NotDetected); Influenza AH1, PCR Not Detected (NotDetected); Influenza AH3,PCR Not Detected (NotDetected); Influenza B, PCR Not Detected (NotDetected); Mycoplasma Pneumoniae, PCR Not Detected (NotDetected); Parainfluenza 1, PCR Not Detected (NotDetected); Parainfluenza 2, PCR Not Detected (NotDetected); Parainfluenza 3, PCR Not Detected (NotDetected); Parainfluenza 4, PCR Not Detected (NotDetected); Respiratory Syncytial Virus Not Detected (NotDetected); Rhinovirus/Enterovirus Not Detected (NotDetected)
[2024-04-28 00:40] LABS: Microscopic, Urine URINE MICROSCOPIC (MICROSCOPIC)
[2024-04-28 00:41] LABS: Appearance,Urine CLEAR (Clear); Bilirubin,Urine Negative (Negative); Blood, Urine Negative (Negative); Color,Urine YELLOW (Yellow); Glucose,Urine (UA) 2+ (Negative); Ketones,Urine Negative (Negative); Leukocyte Esterase,Urine Negative (Negative); Nitrate,Urine Negative (Negative); PH,Urine 5.5 (5.0-8.5); Protein,Urine Negative (Negative); Urobilinogen,Urine 0.2 EU/dl (0.2)
[2024-04-28 00:47] LABS: Lactate Venous 1.9 mmol/L (0.4-2.0); VBG Base Excess -4.3 mmol/L (-2.4-2.3); VBG HCO3 19.5 mmol/L (23-30); VBG Oxygen Saturation 98.9 % (50-70); VBG PCO2 28.2 mmol/L (35-51); VBG PH 7.46 mmol/L (7.31-7.41); VBG PO2 115.8 mmol/L (28-40); VBG Total CO2 20.4 mmol/L (23-27)
[2024-04-28 00:52] LABS: Squamous Epithelial Cell,Urine Occasional #/hpf (0-5)
[2024-04-28] MEDS: 0.9 % SODIUM CHLORIDE 1000ML 1,000 ML 999 ML IV (01:15)
[2024-04-28 01:40] LABS: Adenovirus F 40/41, stool Not Detected (NotDetected); Astrovirus Not Detected (NotDetected); Campylobacter Not Detected (NotDetected); Cryptosporidium Not Detected (NotDetected); Cyclospora Cayetanesis Not Detected (NotDetected); Entamoeba histolytica Not Detected (NotDetected); Enteroaggregative E coli Not Detected (NotDetected); Enteropathogenic E coli Not Detected (NotDetected); Enterotoxigenic E coli Not Detected (NotDetected); Giardia lamblia Not Detected (NotDetected); Norovirus Not Detected (NotDetected); Plesimonas Shigalloides, PCR Not Detected (NotDetected); Rotavirus A Not Detected (NotDetected); Salmonella, PCR Not Detected (NotDetected); Sapovirus Not Detected (NotDetected); Shiga-like toxin E coli Not Detected (NotDetected); Shigella Enterovasive E coli Not Detected (NotDetected); Vibrio Cholerae Not Detected (NotDetected); Vibrio, PCR Not Detected (NotDetected); Yersinia Entercolitica, PCR Not Detected (NotDetected)
[2024-04-28] MEDS: levoFLOXacin 750 MG TABLET PO (02:45)
[2024-04-28 02:49] VITALS: BP 145/69; PULSE 125; RESP 23; TEMP 36.8; O2SAT 94
[2024-04-28 03:08] LABS: Clostridium Difficile A/B, PCR Detected (NotDetected)
== END 2024-04-28 02:51 | disposition left against medical advice (07) ==
PROVIDERS: Emergency Medicine; Emergency Provider Emergency Medicine; PCP Family Medicine
DX: A04.72 Enterocolitis due to Clostridium difficile, not specified as recurrent (principal); R00.0 Tachycardia, unspecified; E86.0 Dehydration; R50.9 Fever, unspecified
CPT/HCPCS: 70450; 71045; 74177; 80050; 80053; 81001; 82803; 83690; 83735; 84436; 84443; 85007; 85025; 87040; 87507; 87633; 87636; 93005; 96361; 96365; 96374; 96375; 99285; J0780; J1885; J3475; J7030; J7120; Q9967

== ENCOUNTER 2024-05-23 13:31 | Outpatient (CLI) | payer BC, SELFPAY ==
[2024-05-27 21:13] LABS: F001-IgE Egg White 0.15 kU/L (Class 0/I); F002-IgE Milk 0.54 kU/L (Class I); F003-IgE Codfish <0.10 kU/L (Class 0); F004-IgE Wheat 0.68 kU/L (Class II); F010-IgE Sesame Seed 1.22 kU/L (Class II); F013-IgE Peanut 0.92 kU/L (Class II); F014-IgE Soybean 0.28 kU/L (Class 0/I); F024-IgE Shrimp 0.26 kU/L (Class 0/I); F256-IgE Walnut 0.47 kU/L (Class I); F338-IgE Scallop <0.10 kU/L (Class 0)
== END 2024-05-23 23:59 | disposition home or self-care (01) ==
LOC: LAB 13:33
PROVIDERS: Visit Provider Internal Medicine Gastroenterology
DX: K20.0 Eosinophilic esophagitis (principal)
CPT/HCPCS: 36415; 86003; 86008

== ENCOUNTER 2024-06-30 16:07 | Outpatient (CLI) | payer BC, SELFPAY ==
[2024-07-02 07:57] LABS: Pancreatic Elastase, Fecal >800 (>200)
== END 2024-06-30 23:59 | disposition home or self-care (01) ==
LOC: LAB 16:08
PROVIDERS: PCP Family Medicine; Visit Provider Nurse Practitioner Family
DX: R14.0 Abdominal distension (gaseous) (principal)
CPT/HCPCS: 82656